=== PATIENT | male | born 1985 | race Caucasian/White ===

== ENCOUNTER 2019-02-09 20:37 | Emergency (ER) | payer BC ==
[~2019-02-09] VITALS: Ht 167.6 cm; Wt 72.0 kg
[~2019-02-09 20:37] MED LIST: IBUP-1542 PO
[2019-02-09 20:39] VITALS: BP 120/84; PULSE 100; RESP 18; Ht 167.6 cm; Wt 72.0 kg
[2019-02-09] MEDS ORDERED: KETOROLAC 30 MG INJ IM STA (21:37)
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
== END 2019-02-09 23:06 | disposition home or self-care (01) ==
LOC: FTE 20:37
DX: S20.219A Contusion of unspecified front wall of thorax, initial encounter (principal); V00.831A Fall from motorized mobility scooter, initial encounter
CPT/HCPCS: 71046; 96372; J1885; Z7502